=== PATIENT | female | born 1970 | race American Indian/Alaskan Native ===

== ENCOUNTER 2016-10-11 03:17 | Emergency (ER) | payer SELFPAY ==
[2016-10-11 03:44] VITALS: BP 159/96
--- NOTE | 2016-10-11 03:57 | XRay Report ---
FINAL REPORT EXAM: XR CHEST ROUTINE 2V HISTORY: Shortness of breath COMPARISON: None available. FINDINGS:: Frontal and lateral views of the chest obtained. Cardiac silhouette is within normal limits. Faint opacity right middle lobe concerning for atelectasis versus pneumonia. No pneumothorax. Visualized bony thorax is grossly intact. IMPRESSION:: Faint opacity right middle lobe concerning for atelectasis versus pneumonia.
[2016-10-11 04:35] LABS: Basophils % (Auto) 0.4 % (0.0-1.8); Eosinophils % (Auto) 1.3 % (0.0-4.3); Hematocrit 35.2 % (30.3-42.9); Hemoglobin 11.6 gm/dl (10.1-14.3); Mean Corpuscular HGB Conc 33 % (30-34); Mean Corpuscular Hemoglobin 30 pg (28-32); Mean Corpuscular Volume 92 fl (79-97); Platelet Count 266 K/mm3 (140-440); Red Blood Count 3.83 M/mm3 (3.65-5.03); Red Cell Distribution Width 14.9 % (13.2-15.2); White Blood Count 11.7 K/mm3 (4.5-11.0)
[2016-10-11 04:48] LABS: Anion Gap 21 mmol/L; BUN/Creatinine Ratio 16.25; Blood Urea Nitrogen 13 mg/dL (7-17); Calcium 9.3 mg/dL (8.4-10.2); Carbon Dioxide 20 mmol/L (22-30); Chloride 103.4 mmol/L (98-107); Glucose 117 mg/dL (65-100); Potassium 3.9 mmol/L (3.6-5.0); Sodium 140 mmol/L (137-145)
[2016-10-11 06:36] LABS: Bilirubin,Urine NEG (Negative); Blood,Urine NEG (Negative); Ketones,Urine NEG (Negative); Leukocyte Esterase,Urine NEG (Negative); Mucus,Urine FEW /HPF; Nitrite,Urine NEG (Negative); Protein,Urine <15 mg/dL mg/dL (Negative); Urobilinogen,Urine < 2.0 mg/dL (<2.0)
== END 2016-10-11 04:15 | disposition left against medical advice (07) ==
LOC: ED 03:17
DX: R07.89 Other chest pain (principal); R06.02 Shortness of breath; M19.90 Unspecified osteoarthritis, unspecified site; Z53.21 Procedure and treatment not carried out due to patient leaving prior to being seen by health care provider
CPT/HCPCS: 36415; 71020; 80048; 81001; 84484; 85025; 87040; 93005; 93010

== ENCOUNTER 2018-05-30 15:05 | Emergency (ER) | payer SELFPAY ==
--- NOTE | 2018-05-30 15:21 | Emergency Department Report ---
Chief Complaint: Abdominal Pain Stated Complaint: DIFFICULTY HAVING BOWEL MOVEMENT Time Seen by Provider: 05/30/18 15:17 - HPI History of Present Illness: Pt is c/o of rectal pain a month pt last had a BM yesterday and she states it was hard and had pain with defecation pt states there is blood when she wipes and present in the toliet after BM pt is tolerating PO intake, no N/V, no fever she denies any abd pain, has abdominal bloating seen at [place] on 05/25, given preparation H and stool softener, pt states she was not able to place stool softener no hx of colonoscopy VSS MSE complete MSE screening note: Focused history and physical exam performed. Due to findings the following was ordered: ED Disposition for MSE Condition: Stable Instructions: Abdominal Pain (ED)
[2018-05-30 15:30] VITALS: BP 125/72
--- NOTE | 2018-05-30 16:26 | Emergency Department Report ---
ED Abdominal Pain HPI - General Chief Complaint: Abdominal Pain Stated Complaint: DIFFICULTY HAVING BOWEL MOVEMENT Time Seen by Provider: 05/30/18 15:17 Source: patient Mode of arrival: Ambulatory Limitations: No Limitations - History of Present Illness Initial Comments: Patient is a 47-year-old -[place] female who comes in complaining of abdominal pain and problems HAVING BM. PT HAS BEEN TO SEVERAL OTHER HOSPITALS WITH THE SAME. SHE STATES SHE GETS NO ANSWERS DENIES TAKING HOME MEDS INCLUDING NARCOTICS. SHE DOES TAKE COLACE AFTER LAST ER VISIT -: Gradual, week(s) Location: diffuse Severity: moderate Severity scale (0 -10): 10 Consistency: constant Improves With: nothing Worsens With: nothing Associated Symptoms: denies other symptoms, constipation. denies: nausea, vomiting, diarrhea, fever, chills, dysuria, hematemesis, hematochezia, melena, hematuria, anorexia, syncope - Related Data Previous Rx's Medication Instructions Recorded Last Taken Type Polyethylene Glycol 3350 [Miralax] 119 gm PO BID #1 each 05/30/18 Unknown Rx Allergies Allergy/AdvReac Type Severity Reaction Status Date / Time No Known Allergies Allergy Verified 07/17/15 10:01 ED Review of Systems ROS: Stated complaint: DIFFICULTY HAVING BOWEL MOVEMENT Other details as noted in HPI Comment: All other systems reviewed and negative Constitutional: denies: chills Eyes: denies: eye pain ENT: denies: ear pain Respiratory: denies: see HPI Cardiovascular: denies: dyspnea on exertion Endocrine: denies: excessive sweating Gastrointestinal: as per HPI, abdominal pain, constipation. denies: nausea, vomiting, diarrhea, hematemesis, melena Genitourinary: denies: urgency Musculoskeletal: denies: back pain Skin: denies: lesions Neurological: denies: headache Psychiatric: denies: anxiety Hematological/Lymphatic: denies: easy bleeding ED Past Medical Hx - Past Medical History Hx Hypertension: No Hx Arthritis: Yes - Surgical History Additional Surgical History: TUBAL LIGATION - Social History Smoking Status: Former Smoker Substance Use Type: Alcohol - Medications Home Medications: Home Medications Medication Instructions Recorded Confirmed Last Taken Type Polyethylene Glycol 3350 [Miralax] 119 gm PO BID #1 each 05/30/18 Unknown Rx ED Physical Exam - General Limitations: No Limitations General appearance: alert - Head Head exam: Present: atraumatic - Eye Eye exam: Present: normal appearance, PERRL, EOMI - ENT ENT exam: Present: normal exam, mucous membranes moist - Neck Neck exam: Present: normal inspection - Respiratory Respiratory exam: Present: normal lung sounds bilaterally - GI/Abdominal GI/Abdominal exam: Present: soft, normal bowel sounds. Absent: distended, tenderness, guarding, rebound, rigid, diminished bowel sounds, hyperactive bowel sounds, hypoactive bowel sounds, organomegaly, mass, bruit, pulsatile mass, hernia - Rectal Rectal exam: Present: deferred - Extremities Exam Extremities exam: Present: normal inspection, full ROM - Back Exam Back exam: Present: normal inspection, full ROM - Neurological Exam Neurological exam: Present: alert, oriented X3 - Psychiatric Psychiatric exam: Present: normal affect, normal mood - Skin Skin exam: Present: warm, dry, intact ED Course Vital Signs 05/30/18 15:17 Temperature 98.1 F Pulse Rate 84 Respiratory 18 Rate Blood Pressure 125/72 O2 Sat by Pulse 99 Oximetry ED Medical Decision Making - Medical Decision Making NO EXTERNAL HEMORRHOIDS NO BLOODY STOOLS XRAY NOTED COLACE BID PREP H MG CITRATE DC HOME WITH GI FOLLOW UP Vital Signs 05/30/18 15:17 Temperature 98.1 F Pulse Rate 84 Respiratory 18 Rate Blood Pressure 125/72 O2 Sat by Pulse 99 Oximetry Critical care attestation.: If time is entered above; I have spent that time in minutes in the direct care of this critically ill patient, excluding procedure time. ED Disposition Clinical Impression: Constipation, Internal hemorrhoid Disposition: DC-01 TO HOME OR SELFCARE Is pt being admited?: No Does the pt Need Aspirin: No Condition: Stable Instructions: High Fiber Diet (ED) Additional Instructions: HYDRATE WELL WITH WATER YOU SHOULD HAVE BOWEL MOVEMENT WITH WHAT WE GAVE YOU TODAY FOLLOW UP WITH GI MD IF PERSISTS Prescriptions: Polyethylene Glycol 3350 [Miralax] 119 gm PO BID #1 each Referrals: BETH PINK MD [Staff Physician] - 3-5 Days ABIOLA DEAN MD [Staff Physician] - 3-5 Days ROSARIO GEE MD [Staff Physician] - 3-5 Days Time of Disposition: 17:09
[2018-05-30] MEDS ORDERED: CITRATE OF MAGNESIA PO ONE (16:39)
[2018-05-30] MEDS ORDERED: PREPARATION H PR ONE (16:48)
--- NOTE | 2018-05-30 17:05 | XRay Report ---
PROCEDURE: XR ABDOMEN 2V TECHNIQUE: Supine and erect views of the abdomen HISTORY: abd dist, rectal pain, constipation COMPARISONS: None . FINDINGS: The bowel gas pattern is nonspecific. No free air is identified. Mild stool is present in the ascendi ng colon and rectosigmoid colon. Soft tissues have no evidence for mass shadows or calcifications. Th e bony structures are intact. IMPRESSION: Nonspecific, nonobstructive bowel gas pattern with no acute process noted. This document is electronically signed by Cristel Simmons MD., May 30 2018 05:03:31 PM ET
== END 2018-05-30 17:45 | disposition home or self-care (01) ==
LOC: ED 15:05
DX: K59.00 Constipation, unspecified (principal); K92.2 Gastrointestinal hemorrhage, unspecified; M19.90 Unspecified osteoarthritis, unspecified site; Z98.51 Tubal ligation status; Z87.891 Personal history of nicotine dependence
CPT/HCPCS: 74019; 99283

== ENCOUNTER 2018-08-01 11:59 | Emergency (ER) | payer OTHER ==
[2018-08-01 12:25] VITALS: BP 141/86
--- NOTE | 2018-08-01 17:01 | Emergency Department Report ---
ED General Adult HPI - General Chief complaint: Rectal Pain Stated complaint: BLOOD IN STOOL/PAIN Time Seen by Provider: 08/01/18 15:15 Source: patient Mode of arrival: Ambulatory Limitations: No Limitations - History of Present Illness Initial comments: This is a 47-year-old female nontoxic, well nourished in appearance, no acute signs of distress presents to the ED with c/o of rectal pain x2 months. Patient stated that she has pain while bowel movement. Patient stated that she has went to previous hospitalizations but told that she had hemorrhoids. Patient denies any abdominal pain, pelvic pain, blood in stool, fever, chills, nausea, vomiting, chest pain, or shortness of breathe. Patient denies any allergies or significant past medical history. -: month(s) Radiation: non-radiation Severity scale (0 -10): 8 Quality: aching Consistency: constant Improves with: none Worsens with: none Associated Symptoms: denies: confusion, chest pain, cough, diaphoresis, fever/chills, headaches, loss of appetite, malaise, nausea/vomiting, rash, seizure, shortness of breath, syncope, weakness Treatments Prior to Arrival: none - Related Data Previous Rx's Medication Instructions Recorded Last Taken Type Polyethylene Glycol 3350 [Miralax] 119 gm PO BID #1 each 05/30/18 Unknown Rx Docusate Sodium [Colace] 100 mg PO BID PRN #20 capsule 08/01/18 Unknown Rx PE/Shk Lvr/Mo/Pet,Wh [Preparation 28 gm NM DAILY #1 tube 08/01/18 Unknown Rx H] Allergies Allergy/AdvReac Type Severity Reaction Status Date / Time No Known Allergies Allergy Verified 07/17/15 10:01 ED Review of Systems ROS: Stated complaint: BLOOD IN STOOL/PAIN Other details as noted in HPI Constitutional: denies: chills, fever Eyes: denies: eye pain, eye discharge, vision change ENT: denies: ear pain, throat pain Respiratory: denies: cough, shortness of breath, wheezing Cardiovascular: denies: chest pain, palpitations Endocrine: no symptoms reported Gastrointestinal: denies: abdominal pain, nausea, diarrhea Genitourinary: denies: urgency, dysuria, discharge Musculoskeletal: denies: back pain, joint swelling, arthralgia Skin: denies: rash, lesions Neurological: denies: headache, weakness, paresthesias Psychiatric: denies: anxiety, depression Hematological/Lymphatic: denies: easy bleeding, easy bruising ED Past Medical Hx - Past Medical History Previous Medical History?: Yes Hx Hypertension: No Hx Arthritis: Yes - Surgical History Past Surgical History?: Yes Additional Surgical History: TUBAL LIGATION - Social History Smoking Status: Current Some Day Smoker Substance Use Type: Alcohol - Medications Home Medications: Home Medications Medication Instructions Recorded Confirmed Last Taken Type Polyethylene Glycol 3350 [Miralax] 119 gm PO BID #1 each 05/30/18 Unknown Rx Docusate Sodium [Colace] 100 mg PO BID PRN #20 capsule 08/01/18 Unknown Rx PE/Shk Lvr/Mo/Pet,Wh [Preparation 28 gm NM DAILY #1 tube 08/01/18 Unknown Rx H] ED Physical Exam - General Limitations: No Limitations General appearance: alert, in no apparent distress - Head Head exam: Present: atraumatic, normocephalic - GI/Abdominal GI/Abdominal exam: Present: soft, normal bowel sounds. Absent: distended, tenderness, guarding, rebound, rigid, diminished bowel sounds - Rectal Rectal exam: Present: hemorrhoids (slight with reducible), tenderness, other (head teller Jack RN present during rectal exam). Absent: decreased rectal tone, heme (+) stool, black stool, bloody stool, fecal impaction, mass - Extremities Exam Extremities exam: Present: normal inspection, full ROM - Back Exam Back exam: Present: normal inspection, full ROM - Neurological Exam Neurological exam: Present: alert, oriented X3 - Psychiatric Psychiatric exam: Present: normal affect, normal mood - Skin Skin exam: Present: warm, dry, intact, normal color. Absent: rash ED Course Vital Signs 08/01/18 12:24 Temperature 97.9 F Pulse Rate 84 Respiratory 18 Rate Blood Pressure 141/86 O2 Sat by Pulse 99 Oximetry - Reevaluation(s) Reevaluation #1: 08/01/18 17:22 Patient is speaking in full sentences with no signs of distress noted. ED Medical Decision Making - Medical Decision Making This is a 47-year-old female that presents with hemorrhoids. Patient is stable and was examined by me. Assessment has been performed with a head teller present. There was a negative fecal occult. Patient was educated on sitz bath. I will put patient on Colace. Patient was educated on high fiber diet as well. Patient was referred to Follow-up with a campaign developer doctor in 3-5 days or if symptoms worsen and continue return to emergency room as soon as possible. At time of discharge, the patient does not seem toxic or ill in appearance. No acute signs of distress noted. Patient agrees to discharge treatment plan of care. No further questions noted by the patient. Critical care attestation.: If time is entered above; I have spent that time in minutes in the direct care of this critically ill patient, excluding procedure time. ED Disposition Clinical Impression: Hemorrhoids Disposition: DC-01 TO HOME OR SELFCARE Is pt being admited?: No Does the pt Need Aspirin: No Condition: Stable Instructions: Hemorrhoids (ED), Sitz Bath (GEN), High Fiber Diet (ED) Additional Instructions: Follow-up with a campaign developer doctor in 3-5 days or if symptoms worsen and continue return to emergency room as soon as possible. Prescriptions: Docusate Sodium [Colace] 100 mg PO BID PRN #20 capsule PRN Reason: Constipation PE/Shk Lvr/Mo/Pet,Wh [Preparation H] 28 gm NM DAILY #1 tube Referrals: PRIMARY CAREMD [Primary Care Provider] - 3-5 Days KEVIN HIDALGO MD [Staff Physician] - 3-5 Days [facility] [Provider Group] - 3-5 Days Forms: Work/School Release Form(ED)
== END 2018-08-01 17:36 | disposition home or self-care (01) ==
LOC: ED 11:59
DX: K62.5 Hemorrhage of anus and rectum (principal); I10 Essential (primary) hypertension; M19.90 Unspecified osteoarthritis, unspecified site; F17.200 Nicotine dependence, unspecified, uncomplicated; Z98.51 Tubal ligation status; Z95.1 Presence of aortocoronary bypass graft
CPT/HCPCS: 99282

== ENCOUNTER 2019-07-13 10:39 | Emergency (ER) | payer SELFPAY ==
[2019-07-13 10:48] VITALS: BP 116/68
--- NOTE | 2019-07-13 11:36 | XRay Report ---
CHEST 2 VIEWS INDICATION: persistent cough. COMPARISON: 10/11/2016 FINDINGS: Support devices: None. Heart: Within normal limits. Pulmonary vasculature: Normal. Lungs/pleura: A faint right middle lobe opacity and mild streaky opacities in the left lower lobe are not significantly changed compared to the last exam. No pleural effusion. Additional findings: None. IMPRESSION: 1. No acute findings. Signer Name: Luis F Porter MD Signed: 07/13/2019 11:32 AM Workstation Name: [id number]
--- NOTE | 2019-07-13 12:57 | Emergency Department Report ---
Minor Respiratory - HPI Chief Complaint: Upper Respiratory Infection Stated Complaint: CHEST COLD Time Seen by Provider: 07/13/19 12:48 Severity: mild Minor Respiratory: Yes Cough, No Rhinorrhea, No Sore Throat, No Able to Tolerate Fluids, No Ear Pain, No Sick Contacts, No Hemoptysis, No Chest Pain, No Shortness of Breath, No Fever Other History: This is a 48-year-old female with a history of asthma who presents the ED complaining of coughing for the past day or so. Patient states that she did go outside yesterday after a while of being indoors. Patient states that she is allergic to pollen and has seasonal allergies. Patient denies any chest pain or shortness of breath. Patient states that coughing is getting so intermittent causing her soreness. Patient also states that she usu ally goes to the [place] [facility] and gets her inhaler from there. States she has not been able to get there to get her inhaler. Patient states she is unable to afford prescription for inhaler and is cheaper at [place]. ED Review of Systems ROS: Stated complaint: CHEST COLD Other details as noted in HPI Comment: All other systems reviewed and negative ED Past Medical Hx - Past Medical History Previous Medical History?: Yes Hx Hypertension: Yes Hx Arthritis: Yes Hx Asthma: Yes - Surgical History Past Surgical History?: Yes Additional Surgical History: TUBAL LIGATION - Social History Smoking Status: Former Smoker Substance Use Type: None - Medications Home Medications: Home Medications Medication Instructions Recorded Confirmed Last Taken Type Polyethylene Glycol 3350 [Miralax] 119 gm PO BID #1 each 05/30/18 Unknown Rx Docusate Sodium [Colace] 100 mg PO BID PRN #20 capsule 08/01/18 Unknown Rx PE/Mo/Pet,Wh [Preparation H] 28 gm MA DAILY #1 tube 08/01/18 Unknown Rx Acetamin/Codeine 120-12Mg/5 ml 10 ml PO TID #100 ml 07/13/19 Unknown Rx [Tylenol/Codeine 120-12 mg/5 ml] Benzonatate [Tessalon Perles] 100 mg PO Q8HR #30 capsule 07/13/19 Unknown Rx predniSONE [Deltasone] 20 mg PO DAILY #4 tablet 07/13/19 Unknown Rx Minor Respiratory Exam - Exam General: Vital signs noted. No distress. Alert and acting appropriately. HEENT: Yes Moist Mucous Membranes, No Pharyngeal Erythema, No Pharyngeal Exudates, No Rhinorrhea, No Conjuctival Injection, No Frontal Tenderness, No Maxillary Tenderness Ear: Neither TM Bulge, Neither TM Erythema, Neither EAC Pain, Neither EAC Discharge Neck: Yes Supple, No Adenopathy Lungs: Yes Good Air Exchange, Yes Cough, No Wheezes, No Ronchi, No Stridor, No Labored Respirations, No Retractions, No Use of Accessory Muscles, No Other Abnormal Lung Sounds Heart: Yes Regular, No Murmur Abdomen: Yes Normal Bowel Sounds, No Tenderness, No Peritoneal Signs Skin: No Rash, No Edema Neurologic: Alert and oriented, no deficits. Musculoskeletal: Unremarkable. ED Course Vital Signs 07/13/19 10:42 Temperature 98.3 F Pulse Rate 82 Respiratory 18 Rate Blood Pressure 116/68 O2 Sat by Pulse 98 Oximetry ED Medical Decision Making - Radiology Data Radiology results: report reviewed, image reviewed CHEST 2 VIEWS INDICATION: persistent cough. COMPARISON: 10/11/2016 FINDINGS: Support devices: None. Heart: Within normal limits. Pulmonary vasculature: Normal. Lungs/pleura: A faint right middle lobe opacity and mild streaky opacities in the left lower lobe are not significantly changed compared to the last exam. No pleural effusion. Additional findings: None. IMPRESSION: 1. No acute findings. Signer Name: Luis F Millan MD Signed: 07/13/2019 11:32 AM Workstation Name: [id number] Transcribed By: REF Dictated By: LUIS F MILLAN MD Electronically Authenticated By: LUIS F MILLAN MD Signed Date/Time: 07/13/19 1132 - Medical Decision Making 48-year-old male presents with bronchitis. no fever during the ED stay. Chest x-ray shows no acute findings. See report above. Discussed cough suppressants and to make sure she follows up in [place] to get her inhalers. Discussed all x-ray findings with the patient. Patient has no respiratory distress in the ED. Discussed with mother symptomatic relief with [id number] medications. Discussed continue Tylenol as needed for pain. Discussed increase fluids and diet intake. Discussed daily vitamin C for immune booster. Discussed follow-up with primary care physician in 3-5 days. Patientverbally states she understands and will comply the following instructions and follow-up Vital signs stable. Patient is in no acute distress Critical care attestation.: If time is entered above; I have spent that time in minutes in the direct care of this critically ill patient, excluding procedure time. ED Disposition Clinical Impression: Acute bronchitis Disposition: DC-01 TO HOME OR SELFCARE Is pt being admited?: No Does the pt Need Aspirin: No Condition: Stable Instructions: Acute Bronchitis (ED) Additional Instructions: Make sure to follow up with the primary care physician as discussed. Take all your medications as you've been prescribed. If you have any worsening symptoms or develop new symptoms please return to ED immediately. Prescriptions: predniSONE [Deltasone] 20 mg PO DAILY #4 tablet Benzonatate [Tessalon Perles] 100 mg PO Q8HR #30 capsule Acetamin/Codeine 120-12Mg/5 ml [Tylenol/Codeine 120-12 mg/5 ml] 10 ml PO TID #100 ml Referrals: PRIMARY CARE, [Primary Care Provider] - 3-5 Days [facility] [Outside] - 3-5 Days [facility] [Outside] - 3-5 Days [facility] [Outside] - 3-5 Days Forms: Accompanied Note, Work/School Release Form(ED) Time of Disposition: 13:47
[2019-07-13] MEDS ORDERED: CETIRIZINE 10 MG TAB PO ONE (13:18)
[2019-07-13] MEDS ORDERED: predniSONE 20 MG TAB PO ONE (13:18)
[2019-07-13] MEDS ORDERED: ACETAMINOPEN W/CODEINE 120-12MG ORAL LIQD 5 ML PO ONE (13:18)
== END 2019-07-13 14:01 | disposition home or self-care (01) ==
LOC: ED 10:39
DX: J20.9 Acute bronchitis, unspecified (principal); I10 Essential (primary) hypertension; M19.90 Unspecified osteoarthritis, unspecified site; Z79.899 Other long term (current) drug therapy
CPT/HCPCS: 71046; 99283; J7512

== ENCOUNTER 2020-10-24 18:25 | Emergency (ER) | payer SELFPAY ==
[2020-10-24 18:42] VITALS: BP 143/83
[2020-10-25] MEDS ORDERED: ACETAMINOPHEN 325 MG/10.15 ML ORAL LIQD UNIT DOSE PO ONE (00:07)
--- NOTE | 2020-10-26 17:41 | Electrocardiograph Report ---
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 Probable left atrial enlargement No previous ECG available for comparison Electronically Signed On 10-26-2020 17:41:23 EDT by Ross Landis
== END 2020-10-25 02:55 | disposition left against medical advice (07) ==
LOC: ED 18:25
DX: R07.9 Chest pain, unspecified (principal); Z53.21 Procedure and treatment not carried out due to patient leaving prior to being seen by health care provider
CPT/HCPCS: 93005

== ENCOUNTER 2021-07-24 18:24 | Emergency (ER) | payer OTHER ==
[2021-07-24] MEDS ORDERED: oxyCODONE /ACETAMINOPHEN 5-325MG TAB PO ONE (19:59)
--- NOTE | 2021-07-24 20:00 | Emergency Department Report ---
<LINA MATIAS - Last Filed: 07/24/21 20:52> ED Back Pain/Injury HPI - General Chief Complaint: Abdominal Pain Stated Complaint: LF SIDE PAIN Time Seen by Provider: 07/24/21 19:58 Source: patient Limitations: No Limitations - History of Present Illness Initial Comments: 50-year-old male presents emerged from complaining of a 2 to 3-day history of gradually worsening low back pain to left side of lumbar region radiating down to her left leg and buttock area. Pain is sharp and burning in nature. She reports no loss of bowel bladder, no saddle paresthesia, no traumatic injury. No inpatient emergency no decreased urinary. Production. No hematuria no hematemesis hematochezia. MD Complaint: back pain -: Gradual, days(s) Similar Symptoms Previously: Yes Place: home Radiation: left leg Quality: dull Consistency: constant Improves With: none Worsens With: none Associated Symptoms: denies other symptoms - Related Data Previous Rx's Medication Instructions Recorded Last Taken Type Polyethylene Glycol 3350 [Miralax] 119 gm PO BID #1 each 05/30/18 Unknown Rx Docusate Sodium [Colace] 100 mg PO BID PRN #20 capsule 08/01/18 Unknown Rx PE/Mo/Pet,Wh [Preparation H] 28 gm NM DAILY #1 tube 08/01/18 Unknown Rx predniSONE [Deltasone] 20 mg PO DAILY #4 tablet 07/13/19 Unknown Rx Ketorolac [Toradol] 10 mg PO Q6H PRN #15 tablet 07/24/21 Unknown Rx methOCARBAMOL [Robaxin] 750 mg PO Q8H PRN #21 tablet 07/24/21 Unknown Rx Allergies Allergy/AdvReac Type Severity Reaction Status Date / Time No Known Allergies Allergy Verified 07/17/15 10:01 ED Review of Systems Comment: All other systems reviewed and negative ED Past Medical Hx - Past Medical History Hx Hypertension: Yes Hx Arthritis: Yes Hx Asthma: Yes - Surgical History Additional Surgical History: TUBAL LIGATION - Social History Smoking Status: Former Smoker Substance Use Type: None - Medications Home Medications: Home Medications Medication Instructions Recorded Confirmed Last Taken Type Polyethylene Glycol 3350 [Miralax] 119 gm PO BID #1 each 05/30/18 Unknown Rx Docusate Sodium [Colace] 100 mg PO BID PRN #20 capsule 08/01/18 Unknown Rx PE/Mo/Pet,Wh [Preparation H] 28 gm NM DAILY #1 tube 08/01/18 Unknown Rx predniSONE [Deltasone] 20 mg PO DAILY #4 tablet 07/13/19 Unknown Rx Ketorolac [Toradol] 10 mg PO Q6H PRN #15 tablet 07/24/21 Unknown Rx methOCARBAMOL [Robaxin] 750 mg PO Q8H PRN #21 tablet 07/24/21 Unknown Rx ED Physical Exam - General Limitations: No Limitations General appearance: alert, in no apparent distress - Head Head exam: Present: atraumatic, normocephalic - Eye Eye exam: Present: normal appearance, PERRL Pupils: Present: normal accommodation - ENT ENT exam: Present: normal exam, normal orophraynx, mucous membranes moist - Neck Neck exam: Present: normal inspection, full ROM - Respiratory Respiratory exam: Present: normal lung sounds bilaterally. Absent: respiratory distress - Cardiovascular Cardiovascular Exam: Present: regular rate, normal rhythm. Absent: systolic murmur, diastolic murmur, rubs, gallop - GI/Abdominal GI/Abdominal exam: Present: soft, normal bowel sounds - Extremities Exam Extremities exam: Present: normal inspection - Back Exam Back exam: Present: normal inspection, paraspinal tenderness, vertebral tenderness (The lumbar region and left sacroiliac joint. Negative seated straight leg raise. Pain with with ambulation to the left sacroiliac joint and over the area of the piriformis.). Absent: CVA tenderness (R), CVA tenderness (L) - Neurological Exam Neurological exam: Present: alert, oriented X3, CN II-XII intact, normal gait - Psychiatric Psychiatric exam: Present: normal affect, normal mood - Skin Skin exam: Present: warm, dry, intact, normal color. Absent: rash ED Medical Decision Making - Radiology Data Radiology results: report reviewed [facility] [address] [place] [address] XRay Report Signed Patient: JENNIFFER YUAN MR#: [id number] : 1970 Acct:[id number] Age/Sex: 50 / F ADM Date: 07/24/21 Loc: ED Attending Dr: Ordering Physician: SALLY MANCIA Date of Service: 07/24/21 Procedure(s): XR spine lumbosacral 2-3V Accession Number(s): [id number] cc: SALLY MANCIA Fluoro Time In Minutes: Lumbar spine 3 views INDICATION: Left low back pain IMPRESSION: Moderate bilateral neural foraminal stenosis at L5-S1 secondary to discogenic and facet arthropathy. Signer Name: Mike Garcia MD Signed: 07/24/2021 8:37 PM Workstation Name: [id number] Transcribed By: Dictated By: Mike Garcia MD Electronically Authenticated By: Mike Garcia MD Signed Date/Time: 07/24/212036 DD/ 35 TD/TT: - Medical Decision Making Pt presents the emergency department complaining of back pain most consistent wit lumbago with radiculopathy. Differential Diagnosis Includes LumbaGo Versus Musculoskeletal Spasm, Strain Versus Sciatica. No Back Pain Red Flags on History or Physical. Presentation Not Consistent with Malignancy, Fracture, Cauda Equina, Abdominal Aortic Aneurysm, Viscus Perforation, Pulmonary Embolism, Renal Colic, Pyelonephritis. Patient reports no B symptoms, trauma trauma, incontinence, saddle anesthesia, distal weakness, urinary symptoms and is a febrile. ED Disposition Clinical Impression: Lumbago with sciatica, left side Qualifiers: Chronicity: acute Back pain laterality: left Qualified Code(s): M54.42 - Lumbago with sciatica, left side Lumbar stenosis Qualifiers: Neurogenic claudication status: unspecified Qualified Code(s): M48.061 - Spinal stenosis, lumbar region without neurogenic claudication Disposition: 01 HOME / SELF CARE / HOMELESS Is pt being admited?: No Does the pt Need Aspirin: No Condition: Stable Instructions: Spinal Stenosis, Radicular Pain, Sciatica, Abdominal Pain (ED) Additional Instructions: You have been seen evaluate emergency department for your low back pain which is atraumatic in nature. X-ray does show lumbar stenosis. It is imperative that she follow-up with orthopedic provider for further evaluation and treatment options of this issue Prescriptions: methOCARBAMOL [Robaxin] 750 mg PO Q8H PRN #21 tablet PRN Reason: Spasms Ketorolac [Toradol] 10 mg PO Q6H PRN #15 tablet PRN Reason: Pain Referrals: [facility] [Provider Group] - 3-5 Days LIZ ARORA MD [Staff Physician] - 3-5 Days Forms: Work/School Release Form(ED) <SHYLA HORTA - Last Filed: 07/27/21 19:19> ED Review of Systems ROS: Stated complaint: LF SIDE PAIN Other details as noted in HPI ED Course Vital Signs 07/24/21 07/24/21 18:37 21:33 Temperature 97.8 F Pulse Rate 98 H 94 H Respiratory 16 12 Rate Blood Pressure 132/79 137/82 [Left] O2 Sat by Pulse 99 100 Oximetry ED Medical Decision Making - Medical Decision Making I have reviewed the PA/[employer] SUPERVISOR's note and plan of care. I was available for consultation as needed at all times during the patient's visit in the emergency department but was not consulted on this case. I agree with the plan to return to the ER if the patient's symptoms worsen or do not improve. Critical care attestation.: If time is entered above; I have spent that time in minutes in the direct care of this critically ill patient, excluding procedure time.
--- NOTE | 2021-07-24 20:41 | XRay Report ---
Lumbar spine 3 views INDICATION: Left low back pain IMPRESSION: Moderate bilateral neural foraminal stenosis at L5-S1 secondary to discogenic and facet a rthropathy. Signer Name: Mike Garcia MD Signed: 07/24/2021 8:37 PM Workstation Name: [id number]
[2021-07-24 21:34] VITALS: BP 137/82
== END 2021-07-24 21:34 | disposition home or self-care (01) ==
LOC: ED 18:24
DX: M54.42 Lumbago with sciatica, left side (principal); M48.061 Spinal stenosis, lumbar region without neurogenic claudication; I10 Essential (primary) hypertension; M19.90 Unspecified osteoarthritis, unspecified site; J45.909 Unspecified asthma, uncomplicated; F17.200 Nicotine dependence, unspecified, uncomplicated; Z98.51 Tubal ligation status
CPT/HCPCS: 72100; 99283

== ENCOUNTER 2021-07-27 12:49 | Emergency (ER) | payer SELFPAY ==
[2021-07-27 13:43] VITALS: BP 117/68
[2021-07-27] MEDS ORDERED: oxyCODONE /ACETAMINOPHEN 5-325MG TAB PO ONE (13:59)
[2021-07-27] MEDS ORDERED: dexAMETHasone 4 MG/ML VIAL IM ONE (13:59)
--- NOTE | 2021-07-27 14:01 | Emergency Department Report ---
ED Recheck HPI - General Chief Complaint: Extremity Problem,Nontraumatic Stated Complaint: PAIN ON LT SIDE Time Seen by Provider: 07/27/21 13:59 Source: patient Mode of arrival: Ambulatory Limitations: No Limitations - History of Present Illness Initial Comments: Patient was seen 2 days ago in the ER by a colleague, was discharged home with spinal stenosis and left-sided sciatica. She was given pain medications. She comes in today wanting stronger pain medicines. She is requesting Percocet by name. She states that she cannot see the specialist until next week. She has no signs and symptoms of cauda equina. She has no fever or chills. No incontinence. She is ambulatory to the ER with normal vital signs. MD Complaint: medication refill request -: Gradual, week(s) Symptoms Since Prior Visit: no new symptoms Associated Symptoms: none - Related Data Previous Rx's Medication Instructions Recorded Last Taken Type Polyethylene Glycol 3350 [Miralax] 119 gm PO BID #1 each 05/30/18 Unknown Rx Docusate Sodium [Colace] 100 mg PO BID PRN #20 capsule 08/01/18 Unknown Rx PE/Mo/Pet,Wh [Preparation H] 28 gm PA DAILY #1 tube 08/01/18 Unknown Rx predniSONE [Deltasone] 20 mg PO DAILY #4 tablet 07/13/19 Unknown Rx Ketorolac [Toradol] 10 mg PO Q6H PRN #15 tablet 07/24/21 Unknown Rx methOCARBAMOL [Robaxin] 750 mg PO Q8H PRN #21 tablet 07/24/21 Unknown Rx Allergies Allergy/AdvReac Type Severity Reaction Status Date / Time No Known Allergies Allergy Verified 07/17/15 10:01 ED Review of Systems ROS: Stated complaint: PAIN ON LT SIDE Other details as noted in HPI Comment: All other systems reviewed and negative ED Past Medical Hx - Past Medical History Previous Medical History?: Yes Hx Hypertension: Yes Hx Arthritis: Yes Hx Asthma: Yes Additional medical history: Spinal stenosis - Surgical History Past Surgical History?: Yes Additional Surgical History: TUBAL LIGATION - Family History Family history: no significant - Social History Smoking Status: Former Smoker Substance Use Type: None - Medications Home Medications: Home Medications Medication Instructions Recorded Confirmed Last Taken Type Polyethylene Glycol 3350 [Miralax] 119 gm PO BID #1 each 05/30/18 Unknown Rx Docusate Sodium [Colace] 100 mg PO BID PRN #20 capsule 08/01/18 Unknown Rx PE/Mo/Pet,Wh [Preparation H] 28 gm PA DAILY #1 tube 08/01/18 Unknown Rx predniSONE [Deltasone] 20 mg PO DAILY #4 tablet 07/13/19 Unknown Rx Ketorolac [Toradol] 10 mg PO Q6H PRN #15 tablet 07/24/21 Unknown Rx methOCARBAMOL [Robaxin] 750 mg PO Q8H PRN #21 tablet 07/24/21 Unknown Rx ED Physical Exam - General Limitations: No Limitations General appearance: alert, in no apparent distress - Head Head exam: Present: atraumatic, normocephalic - Eye Eye exam: Present: normal appearance - ENT ENT exam: Present: mucous membranes moist - Neck Neck exam: Present: normal inspection - Respiratory Respiratory exam: Present: normal lung sounds bilaterally. Absent: respiratory distress - Cardiovascular Cardiovascular Exam: Present: regular rate, normal rhythm. Absent: systolic murmur, diastolic murmur, rubs, gallop - GI/Abdominal GI/Abdominal exam: Present: soft, normal bowel sounds - Extremities Exam Extremities exam: Present: normal inspection - Back Exam Back exam: Present: normal inspection - Neurological Exam Neurological exam: Present: alert, oriented X3 - Psychiatric Psychiatric exam: Present: normal affect, normal mood - Skin Skin exam: Present: warm, dry, intact, normal color. Absent: rash ED Course Vital Signs 07/27/21 13:39 Temperature 98.4 F Pulse Rate 77 Respiratory 18 Rate Blood Pressure 117/68 [Right] O2 Sat by Pulse 99 Oximetry ED Recheck MDM - Core Measures Measure Exclusions: not indicated - Medical Decision Making Neurologically intact. Positive left leg straight leg raise No incontinence, no fever, pain not awaking her at night, no abdominal pain Patient ambulatory to the ER I have medicated her with Decadron IM and Percocet. I have explained to her that we cannot discharge her on narcotics. That she would need to see a specialist for that. She verbalizes understanding. She is to continue her current medication regimen. Patient being discharged home with discharge plan of care including diet, medication, activity and follow-up. She verbalizes understanding of plan of care Vital Signs 07/27/21 13:39 Temperature 98.4 F Pulse Rate 77 Respiratory 18 Rate Blood Pressure 117/68 [Right] O2 Sat by Pulse 99 Oximetry Critical care attestation.: If time is entered above; I have spent that time in minutes in the direct care of this critically ill patient, excluding procedure time. ED Disposition Clinical Impression: Lumbago with sciatica, left side Qualifiers: Chronicity: acute Back pain laterality: left Qualified Code(s): M54.42 - Lumbago with sciatica, left side Lumbar stenosis Qualifiers: Neurogenic claudication status: unspecified Qualified Code(s): M48.061 - Spinal stenosis, lumbar region without neurogenic claudication Disposition: 01 HOME / SELF CARE / HOMELESS Is pt being admited?: No Does the pt Need Aspirin: No Condition: Stable Instructions: Sciatica Additional Instructions: Continue your home medication regimen. Follow-up with specialist as we discussed. Refer to your paperwork from the other day for your referral. You will likely need an MRI. You may use Motrin and Tylenol in addition to what you were given for pain. Diet and activity as tolerated Forms: Work/School Release Form(ED) Time of Disposition: 14:03
== END 2021-07-27 15:05 | disposition left against medical advice (07) ==
LOC: ED 12:49
DX: M54.42 Lumbago with sciatica, left side (principal); M48.061 Spinal stenosis, lumbar region without neurogenic claudication; I10 Essential (primary) hypertension; M19.90 Unspecified osteoarthritis, unspecified site; J45.909 Unspecified asthma, uncomplicated; Z98.51 Tubal ligation status; Z87.891 Personal history of nicotine dependence; Z79.899 Other long term (current) drug therapy
CPT/HCPCS: 99281; J1100